=== PATIENT | male | born 1975 | race Caucasian/White ===

== ENCOUNTER 2017-12-02 15:12 | Emergency (ER) | payer OTHER ==
[~2017-12-02] VITALS: Ht 170.1 cm; Wt 90.7 kg
[~2017-12-02 15:12] MED LIST: ANAPROX DS550 MG PO; CIPROFLOXACIN500 MG PO; EFFEXOR100 MG PO; FISH OIL1 IU PO; Fioricet 325 MG1 TAB PO; MEDROL DOSEPAK4 MG PO; MOTRIN800 MG PO; MULTIPLE VITAMI1 TAB PO; NEURONTIN800 MG PO; OXYCODONE AND A1 T11 PO; TESSALON PERLE200 MG PO; ULTRAM50 MG PO
[2017-12-02] MEDS ORDERED: OMNICEF300 MG PO (16:01)
== END 2017-12-02 16:10 | disposition home or self-care (01) ==
LOC: ED 15:12
DX: J02.0 Streptococcal pharyngitis (principal); H66.93 Otitis media, unspecified, bilateral; F17.200 Nicotine dependence, unspecified, uncomplicated; Z88.5 Allergy status to narcotic agent

== ENCOUNTER → 2021-01-09 | Outpatient (CLI) | payer BC ==
[~2021-01-09] MED LIST changes: +EFFEXOR-XR150 MG PO; -EFFEXOR100 MG PO; +LEVOFLOXACIN500 MG PO; +Motrin,Rufen800 MG PO; +NORVASC5 MG PO; +OMNICEF300 MG PO; +PREDNISONE50 MG PO
[2021-01-09 10:01] LABS: HEMATOCRIT 46.1 % (42.0-52.0); MEAN CELL VOLUME 92.8 fl (80.0-94.0); MEAN CORPUSCULAR HGB 31.4 pg (27.0-31.0); MEAN CORPUSCULAR HGB CONC 33.8 g/dl (33.0-37.0); MEAN PLATELET VOLUME 9.6 fl (9.6-12.3); RED BLOOD COUNT 4.97 10*6/uL (4.50-5.90); RED CELL DISTRI WIDTH 12.6 % (0-14.5); WHITE BLOOD COUNT 8.6 10*3/uL (4.8-10.8)
[2021-01-09 10:26] LABS: ALBUMIN 3.5 gm/dl (3.1-4.5); ALKALINE PHOSPHATASE 109 U/L (45-117); BUN 15 mg/dl (7-24); CHLORIDE 110 mmol/L (98-107); CHOLESTEROL 231 mg/dL (<200); CREATININE 1.04 mg/dL (0.70-1.30); LDL CHOLESTEROL 137 mg/dL (9-159); POTASSIUM 4.1 mmol/L (3.5-5.1); SGOT/AST 16 IU/L (3-35); SGPT/ALT 30 U/L (12-78); SODIUM 140 mmol/L (136-145); TOTAL PROTEIN 7.6 gm/dL (6.4-8.2); TRIGLYCERIDES 291 mg/dl (<150)
== END | disposition home or self-care (01) ==
LOC: LAB 09:16
PROVIDERS: ATTEND Physician Assistant
DX: Z02.4 Encounter for examination for driving license (principal)

== ENCOUNTER → 2021-06-17 | Outpatient (CLI) | payer BC ==
[2021-06-19 17:06] LABS: TESTOSTERONE FREE, (DIRECT) 7.6 pg/mL (6.8-21.5)
== END | disposition home or self-care (01) ==
LOC: LAB 09:18
PROVIDERS: ATTEND Physician Assistant
DX: E29.1 Testicular hypofunction (principal)

== ENCOUNTER → 2023-01-07 | Outpatient (CLI) | payer BC ==
[2023-01-07 08:29] LABS: HEMATOCRIT 43.7 % (42.0-52.0); MEAN CORPUSCULAR HGB 32.4 pg (27.0-31.0); MEAN CORPUSCULAR HGB CONC 35.2 g/dl (33.0-37.0); MEAN PLATELET VOLUME 8.9 fl (9.6-12.3); RED BLOOD COUNT 4.75 10*6/uL (4.50-5.90); RED CELL DISTRI WIDTH 12.4 % (0-14.5); WHITE BLOOD COUNT 8.3 10*3/uL (4.8-10.8)
[2023-01-07 09:06] LABS: ALKALINE PHOSPHATASE 96 U/L (46-116); BUN 10 mg/dl (9-23); CHLORIDE 105 mmol/L (98-107); CHOLESTEROL 197 mg/dL (<200); LDL CHOLESTEROL 129 mg/dL (9-159); POTASSIUM 4.4 mmol/L (3.4-5.1); SGPT/ALT 21 U/L (10-49); TOTAL PROTEIN 7.1 gm/dL (6.0-8.0); TRIGLYCERIDES 153 mg/dl (<150)
== END | disposition home or self-care (01) ==
LOC: LAB 07:55
PROVIDERS: ATTEND Physician Assistant
DX: Z02.4 Encounter for examination for driving license (principal)